=== PATIENT | female | born 1970 | race Caucasian/White ===

== ENCOUNTER → 2021-09-21 08:59 | Outpatient (CLI) | payer OTHER, MEDICAID, SELFPAY ==
[2021-09-21 20:14] LABS: Hemoglobin A1C% w Est Avg Glu 4.8 % (4.0-6.0)
[2021-09-21 20:56] LABS: Alanine Aminotransferase 26 IU/L (<35); Albumin 4.1 g/dL (3.5-5.0); Albumin Globulin Ratio 1.5 (1.0-2.8); Alkaline Phosphatase 37 U/L (38-126); Aspartate Aminotransferase 26 IU/L (14-36); BUN Creatinine Ratio 19.3 (6-22); Bilirubin Total 0.7 mg/dL (0.2-1.3); Blood Urea Nitrogen 11 mg/dL (7-17); Calcium 9.5 mg/dL (8.4-10.2); Carbon Dioxide 26 mmol/L (22-32); Chloride 103 mmol/L (98-107); Cholesterol 231 mg/dL (140-199); Estimated Glomerular Filt Rate > 60.0 mL/min (>60); Globulin 2.8 g/dL (1.7-4.1); Glucose 98 mg/dL (70-100); HDL Cholesterol 78 mg/dL (40-60); HEMOLYSIS < 15 (0-50); LDL Cholesterol Calculated 137 mg/dL (<100); Potassium 4.1 mmol/L (3.4-5.1); Sodium 137 mmol/L (137-145); Total Protein 6.9 g/dL (6.3-8.2); Triglycerides 82 mg/dL (35-150)
== END ==
PROVIDERS: PCP Physician Assistant; Visit Provider Physician Assistant
DX: R73.09 Other abnormal glucose (principal)
CPT/HCPCS: 80053; 80061; 83036

== ENCOUNTER → 2022-01-14 10:21 | Outpatient (CLI) | payer OTHER, MEDICAID, SELFPAY ==
--- NOTE | 2022-01-14 10:23 | DI.MG.S_ITS ---
BILATERAL DIGITAL SCREENING MAMMOGRAM 3D/2D WITH CAD: 01/14/2022 CLINICAL: Routine screening. Baseline exam Family history of breast cancer. No prior exams were available for comparison. The tissue of both breasts is extremely dense, which lowers the sensitivity of mammography. Current study was also evaluated with a Computer Aided Detection (CAD) system. No significant masses, calcifications, or other findings are seen in either breast. IMPRESSION: NEGATIVE There is no mammographic evidence of malignancy. A 1 year screening mammogram is recommended. This exam was interpreted at Station ID: [id number]. NOTE: For mammograms, a report in lay terms will be sent to the patient. Approximately 15% of breast malignancies will not be visualized mammographically. In the management of a palpable breast mass, a negative mammogram must not discourage biopsy of a clinically suspicious lesion. Electronically Signed By: Debbie johnson/jigna:01/14/2022 11:07:50 letter sent: Normal Exam ACR BI-RADS Category 1: Negative 3341F
== END ==
PROVIDERS: PCP Physician Assistant; Referring Provider Physician Assistant; Visit Provider Physician Assistant
DX: Z12.31 Encounter for screening mammogram for malignant neoplasm of breast (principal); Z80.3 Family history of malignant neoplasm of breast
CPT/HCPCS: 77063; 77067

== ENCOUNTER → 2024-01-04 09:22 | Outpatient (CLI) | payer OTHER, MEDICAID, SELFPAY ==
[2024-01-04 19:01] LABS: Add Manual Diff / Slide Review NO; Basophils Absolute Auto 0 /uL (0-100); Basophils Percent Auto 1.1 % (0-2); Eosinophils Absolute Auto 100 /uL (0-450); HEMOLYSIS < 15 (0-50); Hematocrit 33.3 % (36-46); Hemoglobin 11.4 g/dL (12.0-16.0); Iron 147 ug/dL (37-170); Lymphocytes Absolute Auto 1600 /uL (1100-4500); Lymphocytes Percent Auto 38.4 % (25-40); Mean Corpuscular HGB Conc 34.3 % (30-36); Mean Corpuscular Hemoglobin 31.1 PG (26-34); Mean Corpuscular Volume 90.7 fL (80-100); Monocytes Absolute Auto 300 /uL (0-900); Monocytes Percent Auto 7.4 % (3-14); Neutrophils Absolute Auto 2100 /uL (1500-7000); Neutrophils Percent Auto 51.1 % (50-75); Platelet Count 281 X10^3/uL (150-400); Red Blood Cell Count 3.68 X10^6/uL (4.0-5.2); Red Cell Distribution Width 13.7 % (11.6-14.8); White Blood Cell Count 4.1 X10^3/uL (4.5-11.0)
[2024-01-04 19:12] LABS: Alanine Aminotransferase 17 IU/L (<35); Albumin 3.8 g/dL (3.5-5.0); Albumin Globulin Ratio 1.2 (1.0-2.8); Alkaline Phosphatase 44 U/L (38-126); Aspartate Aminotransferase 23 IU/L (14-36); BUN Creatinine Ratio 16.1 (6-22); Bilirubin Total 0.6 mg/dL (0.2-1.3); Blood Urea Nitrogen 10 mg/dL (7-17); Calcium 9.1 mg/dL (8.4-10.2); Carbon Dioxide 30 mmol/L (22-32); Chloride 106 mmol/L (98-107); Cholesterol 207 mg/dL (140-199); Estimated Glomerular Filt Rate > 60 mL/min (>60); Globulin 3.1 g/dL (1.7-4.1); Glucose 92 mg/dL (70-100); HDL Cholesterol 89 mg/dL (40-60); HEMOLYSIS < 15 (0-50); LDL Cholesterol Calculated 107 mg/dL (<100); Sodium 138 mmol/L (137-145); Total Protein 6.9 g/dL (6.3-8.2); Triglycerides 56 mg/dL (35-150)
[2024-01-04 19:16] LABS: Percent Iron Saturation 45 % (15-50); Total Iron Binding Capacity 324 ug/dL (265-497); Transferrin 279 mg/dL (206-381)
[2024-01-04 19:34] LABS: TSH w/ Reflex to FT4 1.58 uIU/mL (0.47-4.68)
[2024-01-04 19:38] LABS: Ferritin 9 ng/mL (11-264)
== END ==
PROVIDERS: PCP Family Medicine; Visit Provider Family Medicine
DX: Z13.1 Encounter for screening for diabetes mellitus (principal); N92.0 Excessive and frequent menstruation with regular cycle; Z13.6 Encounter for screening for cardiovascular disorders
CPT/HCPCS: 80053; 80061; 82728; 83540; 83550; 84443; 85025

== ENCOUNTER → 2024-01-09 11:24 | Outpatient (CLI) | payer OTHER, MEDICAID, SELFPAY ==
--- NOTE | 2024-01-09 11:26 | DI.MG.S_ITS ---
BILATERAL DIGITAL SCREENING MAMMOGRAM 3D/2D WITH CAD: 01/09/2024 CLINICAL: Routine screening. Family history of breast cancer. Comparison is made to exam dated: 01/14/2022 mammogram - [facility]. Both breasts are extremely dense, which lowers the sensitivity of mammography (category d />75% glandular tissue). Current study was also evaluated with a Computer Aided Detection (CAD) system. There are benign diffuse calcifications in both breasts. No significant masses, calcifications, or other findings are seen in either breast. There has been no significant interval change. IMPRESSION: BENIGN There is no mammographic evidence of malignancy. A 1 year screening mammogram is recommended. Based on the Tyrer Cuzick model (a risk assessment model) the patient's lifetime risk is 14.0% and her 10 year risk is 3.5%. According to the ACR, ACS, and NCCN guidelines, an annual breast MRI exam along with mammogram is recommended if the patient's lifetime risk is 20% or greater. This exam was interpreted at Station ID: [id number]. NOTE: For mammograms, a report in lay terms will be sent to the patient. Approximately 15% of breast malignancies will not be visualized mammographically. In the management of a palpable breast mass, a negative mammogram must not discourage biopsy of a clinically suspicious lesion. Electronically Signed By: Seth simmons/jigna:01/09/2024 17:44:12 letter sent: Normal Exam ACR BI-RADS Category 2: Benign Finding(s) 3342F
== END ==
PROVIDERS: PCP Family Medicine; Referring Provider Family Medicine; Visit Provider Family Medicine
DX: Z12.31 Encounter for screening mammogram for malignant neoplasm of breast (principal); Z80.3 Family history of malignant neoplasm of breast; R92.323 Mammographic fibroglandular density, bilateral breasts
CPT/HCPCS: 77063; 77067

== ENCOUNTER → 2024-02-12 11:00 | Outpatient (CLI) | payer OTHER, MEDICAID, SELFPAY ==
--- NOTE | 2024-02-12 11:01 | DI.US.S_ITS ---
PROCEDURE: US PELVIC COMPLETE INDICATIONS: Menorrhagia, anemia TECHNIQUE: Real-time scanning was performed of the pelvic organs, with image documentation. Additional endovaginal scanning was necessary due to incomplete visualization of the adnexal and endometrial structures by transabdominal scanning. COMPARISON: None. FINDINGS: Uterus: Uterus is retroverted and normal in size at 9.2 x 6.3 x 4.6 cm. The myometrium is homogeneous. The endometrium measures 9 mm combined thickness. There is a left anterior intramural fibroid which measures 1.6 x 1.5 x 1.2 cm, a midline anterior intramural fibroid which measures 2.4 x 2.3 x 2.2 cm and a right posterior intramural fibroid which measures 5.4 x 5.3 x 4.5 cm. Ovaries: The right ovary measures 3.0 x 1.6 x 1.4 cm, with a calculated ovarian volume of 3.5 cc. The left ovary measures 4.3 x 1.9 x 2.1 cm, with a calculated ovarian volume of 8.9 cc. The ovaries have a normal sonographic appearance. There are fewer than 12 follicles in the bilateral ovaries. There is a thick rim cystic lesion within the left ovary which measures 2.2 x 1.6 x 1.9 cm. No adnexal masses are seen. Other: No pathologic free abdominal or pelvic fluid. IMPRESSION: 1. Endometrium is within normal limits in a premenopausal female. 2. Probable left hemorrhagic cyst or corpus luteal cyst. 6-12 week follow-up recommended to ensure resolution. 3. Fibroid uterus. We strive to produce accurate, complete, and clear reports of imaging services. To assist us in improving patient care, this report was composed using standard report templates and voice recognition software. Therefore, it may contain abnormal punctuation, insertions and/or omissions. Occasional wrong-word or sound-alike substitutions may occur. Though we review the report and make efforts to correct it, we do recommend that the report be read carefully in proper context to recognize any text inaccuracies. Dictated by: Debbie Bloom M.D. on 02/12/2024 at 13:41 Approved by: Debbie Bloom M.D. on 02/12/2024 at 13:43
== END ==
PROVIDERS: PCP Family Medicine; Referring Provider Family Medicine; Visit Provider Family Medicine
DX: D25.1 Intramural leiomyoma of uterus (principal); N83.202 Unspecified ovarian cyst, left side; D50.9 Iron deficiency anemia, unspecified; N81.9 Female genital prolapse, unspecified; N92.0 Excessive and frequent menstruation with regular cycle
CPT/HCPCS: 76830; 76856

== ENCOUNTER → 2024-07-25 09:16 | Outpatient (CLI) | payer OTHER, MEDICAID, SELFPAY ==
[2024-07-25 18:42] LABS: Add Manual Diff / Slide Review NO; Basophils Absolute Auto 0 /uL (0-100); Basophils Percent Auto 1.1 % (0-2); Eosinophils Absolute Auto 100 /uL (0-450); Eosinophils Percent Auto 2.7 % (2-4); Hematocrit 30.6 % (36-46); Hemoglobin 10.5 g/dL (12.0-16.0); Lymphocytes Absolute Auto 1300 /uL (1100-4500); Lymphocytes Percent Auto 31.3 % (25-40); Mean Corpuscular HGB Conc 34.5 % (30-36); Mean Corpuscular Hemoglobin 31.8 PG (26-34); Mean Corpuscular Volume 92.3 fL (80-100); Monocytes Absolute Auto 400 /uL (0-900); Neutrophils Absolute Auto 2300 /uL (1500-7000); Neutrophils Percent Auto 55.9 % (50-75); Platelet Count 234 X10^3/uL (150-400); Red Blood Cell Count 3.31 X10^6/uL (4.0-5.2); Red Cell Distribution Width 12.6 % (11.6-14.8); White Blood Cell Count 4.1 X10^3/uL (4.5-11.0)
[2024-07-25 19:05] LABS: HEMOLYSIS < 15 (0-50); Iron 86 ug/dL (37-170)
[2024-07-25 19:10] LABS: Follicle Stimulating Hormone 4.82 mIU/mL
[2024-07-25 19:16] LABS: Percent Iron Saturation 31 % (15-50); Total Iron Binding Capacity 275 ug/dL (265-497); Transferrin 221 mg/dL (206-381)
[2024-07-25 19:26] LABS: Estradiol, Total 49.7 pg/mL
[2024-07-25 19:31] LABS: Ferritin 14 ng/mL (11-264)
== END ==
PROVIDERS: PCP Family Medicine; Visit Provider Nurse Practitioner Adult Health
DX: D50.9 Iron deficiency anemia, unspecified (principal); N92.0 Excessive and frequent menstruation with regular cycle
CPT/HCPCS: 82397; 82670; 82728; 83001; 83540; 83550; 85025

== ENCOUNTER → 2024-08-08 11:28 | Outpatient (CLI) | payer OTHER, MEDICAID, SELFPAY ==
--- NOTE | 2024-08-08 11:31 | DI.US.S_ITS ---
PROCEDURE: US PELVIC COMPLETE INDICATIONS: Heavy menses, new onset, assess for uterine fibroid growth/e TECHNIQUE: Real-time scanning was performed of the pelvic organs, with image documentation. Additional endovaginal scanning was necessary due to incomplete visualization of the adnexal and endometrial structures by transabdominal scanning. COMPARISON: [facility], , US PELVIC COMPLETE, 02/12/2024, 11:32. FINDINGS: Uterus: Uterus is retroverted and normal in size at 9.4 x 6.8 x 6.3 cm. The myometrium is heterogeneous. The endometrium measures 2.3 mm combined thickness. Moderate complex fluid within the endometrium at the fundus. Fundal subserosal/intramural fibroid measuring 5.1 x 5.5 x 4.4 cm, previously 5.4 x 5.3 x 4.5 cm. Mid anterior submucosal fibroid measuring 1.7 x 2.1 x 1.6 cm, previously 2.4 x 2.3 x 2.2 cm. This fibroid abuts versus extends into the endometrium. Right anterior intramural fibroid measuring 1.4 x 1.1 x 1.4 cm, previously 1.6 x 1.5 x 1.2 cm. Ovaries: The right ovary measures 3.2 x 1.5 x 0.9 cm, with a calculated ovarian volume of 2.4 cc. The left ovary measures 1.6 x 1.6 x 1.2 cm, with a calculated ovarian volume of 1.6 cc. The ovaries have a normal sonographic appearance. Less than 12 follicles can be seen in each ovary. No adnexal masses are seen. Other: No pathologic free abdominal or pelvic fluid. IMPRESSION: Endometrium is normal in thickness, however there is moderate volume complex fluid within the endometrium at the fundus. Uterine fibroids as above are similar to prior. One of the fibroids abuts versus extends into the endometrium. Ovaries are normal in appearance. We strive to produce accurate, complete, and clear reports of imaging services. To assist us in improving patient care, this report was composed using standard report templates and voice recognition software. Therefore, it may contain abnormal punctuation, insertions and/or omissions. Occasional wrong-word or sound-alike substitutions may occur. Though we review the report and make efforts to correct it, we do recommend that the report be read carefully in proper context to recognize any text inaccuracies. Dictated by: Kulwinder Andrade M.D. on 08/08/2024 at 14:31 Approved by: Kulwinder Andrade M.D. on 08/08/2024 at 14:38
== END ==
LOC: US 11:30
PROVIDERS: PCP Family Medicine; Referring Provider Nurse Practitioner Adult Health; Visit Provider Nurse Practitioner Adult Health
DX: N93.8 Other specified abnormal uterine and vaginal bleeding (principal); D25.1 Intramural leiomyoma of uterus; D25.0 Submucous leiomyoma of uterus
CPT/HCPCS: 76830; 76856

== ENCOUNTER 2024-10-03 08:52 | Day surgery (SDC) | payer OTHER, SELFPAY ==
[2024-09-27 09:01] VITALS: BMI 22.1
--- NOTE | 2024-10-03 | PATH_ITS ---
[facility] Accession Number: [id number] No. of containers..01 Tissue . 01 Material submitted: . endometrium - UTERINE FIBROIDS . 01 Diagnosis: UTERINE FIBROIDS: Portions of weakly proliferative/inactive endometrium with pseudo-decidualized stromal change, suggesetive of possible exogenous hormone effect. Negative for endometrioid intraepithelial neoplasia or malignancy. Abundant fragments of myometrium; negative for regions of necrosis, significant cytologic atypia, or increased mitotic activity. Findings suggest a submucosal leiomyoma, in the appropriate clinical and imaging setting. Metaplastic squamous mucosa with reactive changes. [facility] 10/10/2024 1342 Local . 01 Electronically signed: . Sariah Newman MD, Pathologist NPI- [id number] . 01 Gross description: . UTERINE FIBROIDS: Received in formalin are minute fragments of mucoid and hemorrhagic material measuring 5.0 x 5.0 x 0.3 cm in aggregate. Submitted in toto in 3 cassettes. /TJ 10/04/2024 2352 Local . 01 Pathologist provided ICD-10: D25.9, N93.9 . 01 CPT . 532714 Specimen Comment: A courtesy copy of this report has been sent to [facility] Pathology Performed at: [address], [place], [place] [id number] MD Jose Emerson MD Phone: [phone]
[2024-10-03 09:55] VITALS: BP 110/66; PULSE 69; RESP 12; TEMP 37; O2SAT 100; BMI 22.1
[2024-10-03] MEDS: LACTATED RINGERS 1,000 ML 42 ML IV (10:13)
[2024-10-03] MEDS: ACETAMINOPHEN 325 MG TABLET 975 MG PO (10:13)
--- NOTE | 2024-10-03 11:06 | PM.HP.1 ---
History of Present Illness History of Present Illness Chief complaint: Hysteroscopy D&C Narrative: 54yo F with hx of abnormal uterine bleeding and uterine fibroids, admitted today for same day surgery to complete hysteroscopy, possible myomectomy, with Mirena IUD insertion. She has no new concerns today. Prior HPI 08/26/24: 54yo F with abnormal uterine bleeding, here for consultation. She reports having heavier periods for the last few years, and then worsening over the summer. She reports changing a menstrual cup every hour on heavy days. She also was having increased frequency of vaginal bleeding, having only 1 or 2 weeks without any bleeding. She was started on progesterone 4-6 weeks ago, and is had an improvement in her bleeding. She had a pelvic ultrasound done in December of this year, and then a repeat in July of this year. She desires to have her submucosal fibroid removed. [facility] Medical History Fibroids, submucosal Intramural uterine fibroid DUB (dysfunctional uterine bleeding) Plantar warts (~2018) Eczema (~2016) Chicken pox (~1979) Family History Father Hyperlipidemia Mother Mental health problem Brother Reynoso sarcoma Social History marital status: household members: spouse and children lives independently: Yes caregiver/support person: No housing: house Smoking Status: Never smoker alcohol intake: current additional social history: MM 01/14/2022 FHX: no breast cancer COLON: DUE FHX: no colon cancer. dad adopted PAP 12/24/2019 PMHX: none 14yo daughter son for adoption reunited work: self employed maintenance painter -- mural in [employer] lives with daughter and safe tob: no etoh: 0-3 - discussed risks. 12/2023 Meds Home Medications and Allergies Home Medications Medication Instructions Recorded Confirmed Type norethindrone acetate 5 mg tablet 5 mg PO BID #20 tabs 09/26/24 10/03/24 Rx Allergies Allergy/AdvReac Type Severity Reaction Status Date / Time Sulfa (Sulfonamide Allergy Mild Verified 10/03/24 09:54 Antibiotics) grass pollen Allergy Verified 10/03/24 09:54 Review of Systems Review of Systems ROS: Yes All systems reviewed with the patient and are negative except as otherwise documented Exam Vital Signs (past 8 hours): - 12/19/24 09:55 Temperature 98.6 F Pulse Rate 69 Respiratory Rate 12 Blood Pressure 110/66 Pulse Oximetry 100 Oxygen Delivery Method Room Air Oxygen Delivery Method Room Air Const General: comfortable, well developed and No acute distress Resp Effort & Inspection: normal respiratory effort and able to speak in complete sentences Skin General: no rashes or lesions noted Neuro Cognition: normal cognition Speech: speech normal Psych Mood: congruent mood Affect: normal affect Attitude: cooperative Objective Imaging US - abdomen: Radiologist's impression: FINDINGS: Uterus: Uterus is retroverted and normal in size at 9.4 x 6.8 x 6.3 cm. The myometrium is heterogeneous. The endometrium measures 2.3 mm combined thickness. Moderate complex fluid within the endometrium at the fundus. Fundal subserosal/intramural fibroid measuring 5.1 x 5.5 x 4.4 cm, previously 5.4 x 5.3 x 4.5 cm. Mid anterior submucosal fibroid measuring 1.7 x 2.1 x 1.6 cm, previously 2.4 x 2.3 x 2.2 cm. This fibroid abuts versus extends into the endometrium. Right anterior intramural fibroid measuring 1.4 x 1.1 x 1.4 cm, previously 1.6 x 1.5 x 1.2 cm. Ovaries: The right ovary measures 3.2 x 1.5 x 0.9 cm, with a calculated ovarian volume of 2.4 cc. The left ovary measures 1.6 x 1.6 x 1.2 cm, with a calculated ovarian volume of 1.6 cc. The ovaries have a normal sonographic appearance. Less than 12 follicles can be seen in each ovary. No adnexal masses are seen. Other: No pathologic free abdominal or pelvic fluid. IMPRESSION: Endometrium is normal in thickness, however there is moderate volume complex fluid within the endometrium at the fundus. Uterine fibroids as above are similar to prior. One of the fibroids abuts versus extends into the endometrium. Ovaries are normal in appearance. We strive to produce accurate, complete, and clear reports of imaging services. To assist us in improving patient care, this report was composed using standard report templates and voice recognition software. Therefore, it may contain abnormal punctuation, insertions and/or omissions. Occasional wrong-word or sound-alike substitutions may occur. Though we review the report and make efforts to correct it, we do recommend that the report be read carefully in proper context to recognize any text inaccuracies. Dictated by: Kulwinder Andrade M.D. on 08/08/2024 at 14:31 Approved by: Kulwinder Andrade M.D. on 08/08/2024 at 14:38 Assessment & Plan Assessment and plan (1) Fibroids, submucosal: Status: Acute (2) DUB (dysfunctional uterine bleeding): Status: Acute (3) Intramural uterine fibroid: Status: Acute Assessment & Plan narrative: 54yo F with AUB-L, here for hysteroscopy, possible myomectomy, with Mirena IUD insertion. We reviewed post-op expectations, as well as risk/benefit/alternatives to the procedure. -surgical consent signed today -plan for same day surgery Surgery consent We discussed the risks/benefits/alternatives to the proposed procedure, to include but not limited to: -risk of bleeding, requiring medications, blood products, or other procedures as indicated -risk of infection, requiring prolonged hospital stay or other procedures -risk of injury to other structures, including bowel, bladder, blood vessels, nerves, etc. which may also require additional procedures -risk of adverse reaction to anesthesia or medications -risk of venous thromboembolism and associated sequelae -risk of rare complications such as cardiac arrest, or extremely rarely, Patient is aware of the risks, and desires to proceed with planned surgical procedure. Time-Based Coding :: [30min] spent with patient and on the chart (including review of chart, obtaining history, exam, reviewing outside data, placing orders, documenting exam and treatment plan, and counseling patient) on [10/03/24].
[2024-10-03 12:30] VITALS: BP 87/55; PULSE 63; RESP 12; TEMP 36.4; O2SAT 97
--- NOTE | 2024-10-03 12:30 | PM.OP.1 ---
Operative Date/Time/Diagnoses Date of procedure: 10/03/24 Time of procedure: 11:30 Pre-op diagnosis: Abnormal uterine bleeding Uterine fibroids Post-op diagnosis: same Procedure & Clinicians Procedure: Diagnostic hysteroscopy Hysteroscopic myomectomy & polypectomy Mirena intrauterine device placement Same procedure as scheduled: Yes Indications: 54yo F with history of abnormal uterine bleeding, found to have uterine fibroids on ultrasound. After counseling regarding her options, she desired to proceed with the above procedures. Surgeon: Jumana Dodge Click Yes if Unassisted: Yes Anesthesia Type: General Operative Notes Findings: 2cm submucosal fibroid noted in the left anterior uterine wall; 1cm endometrial polyp noted in the lower uterine segment; otherwise normal endometrial cavity Specimen(s): other (uterine fibroid) Applied: implant(s) (Mirena IUD (lot [id number], exp 07/2026)) Estimated Blood Loss (mL): 5 Blood products transfused: none Procedure in detail: The risks, benefits, indications and alternatives of the procedure were reviewed with the patient and informed consent was obtained. The pt was taken to the operating room where general anesthesia with LMA was obtained without difficulty. The pt was then placed in the low lithotomy position using gel-padded Fran stirrups. Sequential compression devices were placed bilaterally for VTE prophylaxis. The pt was then prepped and draped in the sterile fashion. A sterile speculum was placed in the patient?s vagina and the cervix was visualized. A single tooth tenaculum was used to grasp the posterior lip of the cervix, as the uterus was noted to be retroverted. The cervix was then gently, dilated to a size 8 Hegar dilator. The Myosure operative hysteroscope was first primed and pressure set. The operative hysteroscope was then advanced through the endocervical canal under direct visualization. The uterus was distended with warm saline, and notable for the above findings. The Myosure XL was then inserted into the operative hysteroscope. The submucosal fibroid was resected down to the level of the endometrial lining. The endometrial polyp was also resected with the Myosure device. The operative hysteroscope was then removed under direct visualization. Tissue obtained was sent to pathology for review. The Mirena IUD was then inserted per supervisor car installations protocol, and strings trimmed to 2cm. The single tooth tenaculum was removed from the posterior lip of the cervix. The tenaculum site was noted to be hemostatic after direct pressure was applied. All instruments were then removed from the patient?s vagina. Hysteroscopic fluid deficit was 690cc of normal saline. The patient tolerated the procedure well. At the completion of the case the sponge and needle counts were correct x 2. The patient was taken to the PACU in stable condition. Complications: none Post-operative Condition: stable Disposition: same day surgery Plan for aftercare: Discharge home once meeting PACU criteria.
[2024-10-03 12:35] VITALS: BP 88/47; PULSE 81; RESP 15; TEMP 36.4; O2SAT 98
[2024-10-03 12:42] VITALS: BP 98/65; PULSE 83; RESP 13; TEMP 36.4; O2SAT 99
== END 2024-10-03 13:00 | disposition home or self-care (01) ==
PROVIDERS: PCP Nurse Practitioner Adult Health; Referring Provider Student in an Organized Health Care Education/Training Program; Visit Provider Student in an Organized Health Care Education/Training Program
PROC: 0UDB8ZZ Extraction of Endometrium, Via Natural or Artificial Opening Endoscopic (ICD-10-PCS; CPT 58558; principal; 2024-10-03 11:15)
DX: N93.9 Abnormal uterine and vaginal bleeding, unspecified (principal); D25.0 Submucous leiomyoma of uterus; N84.0 Polyp of corpus uteri
CPT/HCPCS: 58561; 58300; J7298; 81025; C1713; J1100; J2250; J2405; J2704; J3010

== ENCOUNTER → 2024-12-18 09:36 | Outpatient (CLI) | payer OTHER, SELFPAY ==
[2024-12-18 20:29] LABS: Basophils Absolute Auto 0 /uL (0-100); Basophils Percent Auto 0.7 % (0-2); Eosinophils Absolute Auto 100 /uL (0-450); Eosinophils Percent Auto 2.9 % (2-4); Hematocrit 37.7 % (36-46); Lymphocytes Absolute Auto 1700 /uL (1100-4500); Lymphocytes Percent Auto 35.6 % (25-40); Mean Corpuscular HGB Conc 34.5 % (30-36); Mean Corpuscular Hemoglobin 30.8 PG (26-34); Mean Corpuscular Volume 89.2 fL (80-100); Monocytes Absolute Auto 400 /uL (0-900); Monocytes Percent Auto 7.9 % (3-14); Neutrophils Absolute Auto 2500 /uL (1500-7000); Neutrophils Percent Auto 52.9 % (50-75); Platelet Count 286 X10^3/uL (150-400); Red Blood Cell Count 4.23 X10^6/uL (4.0-5.2); Red Cell Distribution Width 14.4 % (11.6-14.8); White Blood Cell Count 4.7 X10^3/uL (4.5-11.0)
[2024-12-18 20:48] LABS: Add Manual Diff / Slide Review SLIDE REVIEW
[2024-12-18 20:49] LABS: RBC Morphology Normal Morphology
[2024-12-18 21:08] LABS: Ferritin 14 ng/mL (11-264)
== END ==
PROVIDERS: PCP Nurse Practitioner Adult Health; Visit Provider Nurse Practitioner Adult Health
DX: N93.8 Other specified abnormal uterine and vaginal bleeding (principal); D50.9 Iron deficiency anemia, unspecified; N95.1 Menopausal and female climacteric states
CPT/HCPCS: 82728; 85025

== ENCOUNTER → 2025-03-17 09:54 | Outpatient (CLI) | payer OTHER, SELFPAY ==
--- NOTE | 2025-03-17 09:54 | DI.MG.S_ITS ---
MM screening mammo BI: 03/17/2025. BI-RADS: 2 CLINICAL: 54-year old female for bilateral screening mammogram. Tyrer-Cuzick lifetime risk of 8.4%. No personal or first-degree family history of breast cancer. PRIOR EXAMS 01/09/2024, 01/14/2022. MAMMOGRAPHY TECHNIQUE: 2D and 3D (tomosynthesis) digital mammographic views obtained, with additional images as needed for full coverage. Current study was also evaluated with a Computer Aided Detection (CAD) system. DENSITY D. The breasts are extremely dense, which lowers the sensitivity of mammography. MAMMOGRAPHY FINDINGS Bilateral: Benign-appearing calcifications noted. There are no suspicious masses, calcifications, or other findings in the breast. IMPRESSION: * No evidence of malignancy with benign findings. RECOMMENDATIONS Bilateral * Annual screening mammography. OVERALL ASSESSMENT CATEGORY BI-RADS-2: Benign. The [employer] recommends annual screening mammography beginning at age 40 for women with average risk of breast cancer. ELECTRONICALLY SIGNED: Seth Lopez M.D. on 03/17/2025 at 02:55:22 PM PT Interpreting Station ID: [id number]
== END ==
LOC: MAMMO 09:54
PROVIDERS: PCP Nurse Practitioner Adult Health; Referring Provider Nurse Practitioner Adult Health; Visit Provider Nurse Practitioner Adult Health
DX: Z12.31 Encounter for screening mammogram for malignant neoplasm of breast (principal); R92.343 Mammographic extreme density, bilateral breasts
CPT/HCPCS: 77063; 77067